=== PATIENT | male | born 1985 | race American Indian/Alaskan Native ===

== ENCOUNTER 2018-09-18 19:56 | Emergency (ER) | payer SELFPAY ==
[2018-09-18 20:57] VITALS: RESP 18; TEMP 98.8
[2018-09-18] MEDS ORDERED: Oxycodone/Acetaminophen 5/325 mg Tab PO STA (21:22)
[2018-09-18 22:24] VITALS: BP 132/76; PULSE 75; O2SAT 99
--- NOTE | 2018-09-18 23:05 | ED PDOC ---
Arrival/HPI - General Chief Complaint: Dental Pain Time Seen by Provider: 09/18/18 21:15 Historian: Patient - History of Present Illness Narrative History of Present Illness (Text): 09/18/18 21:15 [place] is a 33 year old male, with no significant past medical history, who presents to the emergency department complaining of left sided facial swelling and left tooth pain worsening since today. Patient is able to tolerate liquids PO and denies any shortness of breath. Patient denies any fevers, chills, headache, dizziness, chest pain, shortness of breath, dyspnea on exertion, cough, abdominal pain, nausea, vomiting, diarrhea, back pain, neck pain, or any other complaint. Time/Duration: 24 hours Symptom Course: Worsening Activities at Onset: Light Context: Home Past Medical History - Provider Review Nursing Documentation Reviewed: Yes - Psychiatric Hx Substance Use: No (denies) Family/Social History - Physician Review Nursing Documentation Reviewed: Yes Family/Social History: No Known Family HX Smoking Status: Never Smoked Hx Alcohol Use: Yes Frequency of alcohol use: Socially Hx Substance Use: No (denies) Allergies/Home Meds Allergies/Adverse Reactions: Allergies No Known Allergies Allergy (Unverified 09/18/18 21:21) Review of Systems - Physician Review All systems were reviewed & negative as marked: Yes - Review of Systems Constitutional: absent: Fevers, Other (chills) ENT: Other (Left sided facial swelling and and left upper tooth pain) Respiratory: absent: SOB, Cough Cardiovascular: absent: Chest Pain, M[place]ON Gastrointestinal: absent: Abdominal Pain, Diarrhea, Nausea, Vomiting Musculoskeletal: absent: Back Pain, Neck Pain Neurological: absent: Headache, Dizziness Physical Exam Vital Signs Reviewed: Yes Vital Signs Temp Pulse Resp BP Pulse Ox 09/18/18 22:23 75 18 132/76 99 09/18/18 20:54 98.8 F 78 18 140/60 100 Temperature: Afebrile Blood Pressure: Normal Pulse: Regular Respiratory Rate: Normal Appearance: Positive for: Well-Appearing, Non-Toxic, Comfortable Pain Distress: None Mental Status: Positive for: Alert and Oriented X 3 - Systems Exam Head: Present: Atraumatic, Swelling (left sided swelling on the cheek) Pupils: Present: PERRL Extroacular Muscles: Present: EOMI Conjunctiva: Present: Normal Mouth: Present: Moist Mucous Membranes. No: Normal Teeth (first molar cracked, left side) Neck: Present: Normal Range of Motion Respiratory/Chest: Present: Clear to Auscultation, Good Air Exchange. No: Respiratory Distress, Accessory Muscle Use Cardiovascular: Present: Regular Rate and Rhythm, Normal S1, S2. No: Murmurs Abdomen: No: Tenderness, Distention, Peritoneal Signs Skin: Present: Warm, Dry, Normal Color. No: Rashes Psychiatric: Present: Alert, Oriented x 3, Normal Insight, Normal Concentration Medical Decision Making ED Course and Treatment: 09/18/18 21:15 Impression: Patient is a 33 year old female who presents to the emergency department with left sided facial swelling and left upper tooth pain worsening today. Patient is able to tolerate liquids and denies problems breathing. Differential Diagnosis included but are not limited to: Plan: -- Amoxil -- Percocet -- Reassess and disposition Prior Visits: Notes and results from previous visits were reviewed. Progress Notes: - Medication Orders Current Medication Orders: Discontinued Medications Amoxicillin (Amoxil 500 Mg Cap) 500 mg PO STAT STA; Protocol Stop: 09/18/18 21:23 Last Admin: 09/18/18 21:40 Dose: 500 mg Oxycodone/Acetaminophen (Percocet 5/325 Mg Tab) 1 tab PO STAT STA Stop: 09/18/18 21:23 Last Admin: 09/18/18 21:41 Dose: 1 tab MAR Pain Assessment Document 09/18/18 21:41 VIDYA (Rec: 09/18/18 21:41 [id number]) Pain Reassessment Is this a pain reassessment? Yes Sleep Is patient sleeping during reassessment? No Presence of Pain Presence of Pain Yes Pain Scale Used Protocol: PSCALES Pain Scale Used Numeric Location Left, Right or Bilateral Left Pain Location Body Site Face Description Description Constant Intensity of Pain at present 7 Pain Behavior Rubbing Site Facial Grimacing - Scribe Statement The provider has reviewed the documentation as recorded by the Scribdemetria Barry All medical record entries made by the Scribe were at my direction and personally dictated by me. I have reviewed the chart and agree that the record accurately reflects my personal performance of the history, physical exam, medical decision making, and the department course for this patient. I have also personally directed, reviewed, and agree with the discharge instructions and disposition. Disposition/Present on Arrival - Present on Arrival Any Indicators Present on Arrival: No History of DVT/PE: No History of Uncontrolled Diabetes: No Urinary Catheter: No History of Decub. Ulcer: No History Surgical Site Infection Following: None - Disposition Have Diagnosis and Disposition been Completed?: Yes Diagnosis: Dental abscess Disposition: HOME/ ROUTINE Disposition Time: 22:50 Condition: GOOD Discharge Instructions (ExitCare): Tooth Abscess (DC) Additional Instructions: [facility] [address] [place] [address] [phone] [place], [place] [phone] Prescriptions: Amoxicillin 875 mg PO BID #14 tab Tramadol HCl [Ultram] 50 mg PO QID #8 tab Forms: [employer] (Italian)
== END 2018-09-18 22:50 | disposition home or self-care (01) ==
LOC: MERGE 19:56 → ED 19:56
DX: K04.7 Periapical abscess without sinus (principal)